=== PATIENT | male | born 1990 | race African-American/Black ===

== ENCOUNTER 2024-03-03 14:21 | Emergency (ER) | payer SELFPAY ==
[~2024-03-03] VITALS: Ht 188 cm; Wt 96.0 kg
[2024-03-03 14:27] VITALS: O2SAT 100
[2024-03-03 14:30] VITALS: TEMP 98.6; O2SAT 96
[2024-03-03] MEDS: LIDOCAINE HCL/PF 1% 10 MG/ML 5ML VIAL INFIL ONE (16:15)
[2024-03-03 17:10] VITALS: BP 138/70; PULSE 98
[2024-03-03] MEDS: BACITRACIN ZINC OINT UDPKT TOP ONE (17:10)
[2024-03-03] MEDS: IBUPROFEN 600MG TABLET PO ONE (17:10)
[2024-03-03] MEDS: HYDROCODONE/ACETAMINOPHEN 5/325MG TABLET PO ONE (17:10)
[2024-03-03 17:59] LABS: BASOPHILS % 0.3 % (0.0-2.0); EOSINOPHILS % 0.4 % (0.0-5.0); HEMATOCRIT. 44.6 % (42.0-52.0); HEMOGLOBIN. 14.8 g/dL (14.0-18.0); LYMPHOCYTES % 15.5 % (20.0-50.0); MEAN CORPUSCULAR HEMOGLOBIN 28.5 pg (28.0-32.0); MEAN CORPUSCULAR HGB CONC 33.2 g/dL (31.0-37.0); MEAN CORPUSCULAR VOLUME 85.8 fL (80.0-94.0); MEAN PLATELET VOLUME 9.4 fl (7.4-10.4); MONOCYTES % 10.1 % (2.0-8.0); NEUTROPHILS % 73.7 % (40.0-76.0); PLATELET 170 x1000/uL (130-400); RED BLOOD CELL COUNT 5.21 mill/uL (4.7-6.1); RED CELL DISTRIBUTION WIDTH 12.8 % (11.6-14.6); WHITE BLOOD COUNT 8.9 x1000/uL (4.5-11.0)
[2024-03-03 18:04] LABS: CHLORIDE 101 mEq/L (98-107); POTASSIUM 4.1 mEq/L (3.5-5.1); SODIUM 132 mEq/L (136-145)
[2024-03-03 18:05] LABS: CARBON DIOXIDE 27 mEq/L (21-32)
[2024-03-03 18:06] LABS: CALCIUM 9.2 mg/dL (8.7-10.4)
[2024-03-03 18:10] LABS: CREATININE 1.2 mg/dL (0.6-1.3)
[2024-03-03 18:11] LABS: GLUCOSE 114 mg/dL (70-105); UREA NITROGEN BLOOD 9 mg/dL (9-23)
[2024-03-03 18:12] LABS: ALANINE AMINOTRANSFERASE 30 IU/L (10-49); ALBUMIN 4.4 g/dL (3.2-4.8); ASPARTATE AMINOTRANSFERASE 32 IU/L (<34)
[2024-03-03 18:13] LABS: BILIRUBIN DIRECT 0.3 mg/dL (<=3.0); BILIRUBIN TOTAL 1.3 mg/dL (0.1-1.0); PROTEIN TOTAL 7.4 g/dL (6.0-8.3)
[2024-03-03] MEDS ORDERED: SULF1TAB48 MT (19:16)
[2024-03-03] MEDS ORDERED: DOXY100C5 MT (19:16)
[2024-03-03] MEDS ORDERED: HYDR-4001 MT (19:17)
[2024-03-03] MEDS ORDERED: IBUP-2029 MT (19:17)
[2024-03-03 19:30] VITALS: RESP 16
== END 2024-03-03 20:23 | disposition home or self-care (01) ==
LOC: ER 14:21
DX: L02.414 Cutaneous abscess of left upper limb (principal); Z79.899 Other long term (current) drug therapy
CPT/HCPCS: 80076; 80048; 85025; 36415; 84145; 73080; 10060; 99284; J3490; Z7610 ×3